=== PATIENT | female | born 2000 | race Caucasian/White ===

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

== ENCOUNTER 2020-07-05 21:22 | Emergency (ER) | payer OTHER ==
[~2020-07-05] VITALS: Ht 154.9 cm; Wt 53.5 kg
--- NOTE | 2020-07-05 21:22 | NUR ---
PT PERRI FIELDS. TAKEN TO ED 10
--- NOTE | 2020-07-05 21:25 | NUR ---
Dr. Diaz examining patient.
[2020-07-05 21:37] VITALS: BP 105/62
[2020-07-05] MEDS ORDERED: MORPHINE SULFATE 4 MG/ML SYR IVP ONE (21:45)
[2020-07-05] MEDS ORDERED: NACL 0.9% 1,000 ML IV ONE (21:45)
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
[2020-07-05 22:07] LABS: EOSINOPHILS # (AUTO) 0.4 K/uL (0-0.4); EOSINOPHILS % (AUTO) 3.8 % (0.0-4.0); HEMATOCRIT 35.6 % (36-48); HEMOGLOBIN 11.8 g/dL (12.0-16.0); LYMPHOCYTES # (AUTO) 1.3 K/uL (2.5-16.5); LYMPHOCYTES % (AUTO) 13.3 % (20.5-51.1); MEAN CORPUSCULAR HEMOGLOBIN 30 pg (27-31); MEAN CORPUSCULAR HGB CONC 33 g/dL (33-37); MONOCYTES # (AUTO) 0.4 K/uL (0.8-1.0); MONOCYTES % (AUTO) 4.4 % (1.7-9.3); NEUTROPHILS # (AUTO) 7.5 K/uL (1.8-7.7); NEUTROPHILS % (AUTO) 78.5 % (42.2-75.2); PLATELET COUNT (AUTO) 244 K/uL (140-450); RED CELL DISTRIBUTION WIDTH 13.2 % (11.6-13.7); WHITE BLOOD COUNT (AUTO) 9.5 K/uL (4.8-10.8)
[2020-07-05 22:32] LABS: PROTHROMBIN TIME 10.2 secs (10.8-13.4)
--- NOTE | 2020-07-05 22:37 | NUR ---
PT TAKEN TO CT SCAN VIA LUCÍA
--- NOTE | 2020-07-05 23:10 | NUR ---
PT RETURNED FROM CT SCAN
--- NOTE | 2020-07-05 23:10 | NUR ---
PT RETURN FROM CT
[2020-07-05 23:14] LABS: ALBUMIN 4.1 g/dL (3.4-5.0); ANION GAP 13.4 (8-16); CARBON DIOXIDE 24.3 mmol/L (21-32); CREATININE 0.8 mg/dL (0.6-1.3); POTASSIUM 3.7 mmol/L (3.5-5.1); TOTAL BILIRUBIN 0.3 mg/dL (0.0-1.0)
[2020-07-05] MEDS ORDERED: METOCLOPRAMIDE 10 MG/2 ML INJ VIAL IVP ONE (23:20)
[2020-07-05] MEDS ORDERED: DOXY1TCP PO (23:56)
[2020-07-05] MEDS ORDERED: ACET-2619 PO (23:56)
[2020-07-06 00:03] VITALS: BP 123/76
--- NOTE | 2020-07-06 00:04 | NUR ---
Patient discharged with v/s stable. Written and verbal after care instructions given and explained. Patient alert, oriented and verbalized understanding of instructions. Ambulatory with steady gait. All questions addressed prior to discharge. ID band removed. Patient advised to follow up with PMD. Rx of TYLENOL AND DICLEGIS given. Patient educated on indication of medication including possible reaction and side effects. Opportunity to ask questions provided and answered.
--- NOTE | 2020-07-06 19:21 | NUR ---
LATE ENTRY- NS BOLUS DISCONTINUED AT 0000
== END 2020-07-06 00:04 | disposition home or self-care (01) ==
LOC: MED 21:22
DX: S09.8XXA Other specified injuries of head, initial encounter (principal); T81.33XA Disruption of traumatic injury wound repair, initial encounter; M54.2 Cervicalgia; R07.89 Other chest pain; V49.9XXA Car occupant (driver) (passenger) injured in unspecified traffic accident, initial encounter; Y93.89 Activity, other specified; Y92.89 Other specified places as the place of occurrence of the external cause; Y99.8 Other external cause status
CPT/HCPCS: 36415; 70450; 71250; 72125; 80053; 81025; 84702; 85025; 85610; 86900; 86901; 96361; 96374; 96375; 99285; J2270; J2765; J7030

== ENCOUNTER 2023-02-04 12:50 | Emergency (ER) | payer OTHER ==
[~2023-02-04] VITALS: Ht 154.9 cm; Wt 59.0 kg
[~2023-02-04 12:50] MED LIST: ACET-2619 PO; DOXY1TCP PO
[2023-02-04 13:17] VITALS: BP 117/60; PULSE 69; RESP 20; TEMP 98; O2SAT 98
[2023-02-04] MEDS ORDERED: IBUPROFEN 600 MG TAB PO ONE (13:40)
[2023-02-04] MEDS ORDERED: BACITRACIN OINT 500 UNITS/GM PKT TP ONE (13:40)
[2023-02-04] MEDS ORDERED: BACI-418 TP (14:37)
[2023-02-04] MEDS ORDERED: IBUP-2213 PO (14:37)
[2023-02-04 14:59] VITALS: BP 117/60; PULSE 69; RESP 20; TEMP 98; O2SAT 98
== END 2023-02-04 15:00 | disposition home or self-care (01) ==
LOC: MED 12:50
DX: S91.202A Unspecified open wound of left great toe with damage to nail, initial encounter (principal); X58.XXXA Exposure to other specified factors, initial encounter; Y93.89 Activity, other specified; Y92.89 Other specified places as the place of occurrence of the external cause; Y99.8 Other external cause status
CPT/HCPCS: 99283